=== PATIENT | male | born 1940 | race Caucasian/White ===

== ENCOUNTER 2019-11-15 15:48 | Inpatient (IN) | payer MEDICARE, SELFPAY ==
[2019-11-15 16:28] VITALS: BMI 21.5
[2019-11-15 18:27] VITALS: BP 110/55; PULSE 102; RESP 20; TEMP 37.8; O2SAT 99
--- NOTE | 2019-11-15 18:46 | PC.NURSE ---
LYDIA single lumen PICC, flushes freely, blood return
[2019-11-15] MEDS: PRAVASTATIN SODIUM 20 MG TABLET PO (21:45)
[2019-11-16] VITALS: BP 103/52; PULSE 80; RESP 20; TEMP 37.2; O2SAT 98
[2019-11-16] MEDS: MEROPENEM 2 GM in SODIUM CHLORIDE 0.9% IV 100 ML IVPB ×2 (04:42→17:42)
[2019-11-16 08:00] VITALS: BP 127/61; PULSE 81; RESP 18; TEMP 37; O2SAT 99
[2019-11-16] MEDS: ISOSORBIDE DINITRATE 20 MG TABLET 10 MG PO ×3 (09:39→17:41)
[2019-11-16 09:41] VITALS: PULSE 81
[2019-11-16] MEDS: ASPIRIN 81 MG ENTERIC TABLET PO (09:41)
[2019-11-16] MEDS: carvediloL 6.25 MG TABLET PO ×2 (09:41→21:22)
[2019-11-16] MEDS: hydrALAZINE HCL 25 MG TABLET PO ×3 (09:41→17:41)
--- NOTE | 2019-11-16 12:58 | PM.IMHP ---
H&P: HPI History of Present Illness Chief complaint: Infected Pacemaker site Narrative: Buddy Obregon is a 79 year old male transferred from [facility] to this hospital for physical therapy and continued IV antibiotics. Patient was noted to have bleeding from his ICD site on October 01 and was admitted to [facility] on 11/05 where in he had an explantation of his biventricular ICD. He was originally placed on 07/07/2019. the pocket and both leads grew Pseudomonas and Enterobacter complex bacteria and he is currently being treated with meropenem 2 g IV q.12 hours. Review of Systems Constitutional: Constitutional: Denies body ache(s), Denies chills, Denies fatigue, Denies lethargy and Denies weakness Eyes: Eyes: Denies blurry vision and Denies photophobia ENT: Denies dysphagia, Denies nasal congestion and Denies nasal discharge Cardiovascular: Cardiovascular: Denies chest pain and Denies palpitations Respiratory: Respiratory: Denies cough, Denies dyspnea and Denies dyspnea on exertion Gastrointestinal: Gastrointestinal: Denies abdominal pain, Denies diarrhea, Denies nausea and Denies vomiting Genitourinary: Genitourinary: Denies hematuria, Denies dysuria and Denies urinary frequency Musculoskeletal: Musculoskeletal: Denies arthralgias and Denies joint swelling Integumentary/Breasts: Skin/Breast: Denies pruritus, Denies rash and Denies skin pain Neurologic: Denies Abnormal speech present, Denies abnormal gait, Denies headache(s) and Denies numbness Hematologic/Lymphatic: Hematologic/Lymphatic: Denies easy bleeding and Denies easy bruising Allergic/Immunologic: Allergic/Immunologic: Denies urticaria and Denies wheezing [facility] Past Medical History Medical History (Updated 11/16/19 @ 13:46 by Saroj Escobedo MD) Anemia B12 deficiency Cardiomyopathy CHF (congestive heart failure) Coronary heart disease Glaucoma History of blood transfusion Hyperbilirubinemia Hypertension Infection of biventricular implantable cardioverter-defibrillator (ICD) Implanted 07/07/19 Explanted 11/06/19 Intermittent complete atrioventricular block LBBB (left bundle branch block) Myelodysplastic syndrome NSVT (nonsustained ventricular tachycardia) PVCs (premature ventricular contractions) Surgical History Surgical History History of bone marrow biopsy US guided History of cardiac cath Status post tonsillectomy and adenoidectomy Family History Family History Father Heart attack Diabetes mellitus Social History Social History Smoking packs per day: 1 Smoking cigarettes per day: 20.0 Smoking status: Former smoker Tobacco type: cigarettes, pipe and cigars Second hand tobacco smoke exposure: Yes Smoking end date: 11/15/99 Alcohol intake: current Drinks per week: 1 Substance use: never Living arrangements: with family Gender identity (if verbalized by the patient): Male Sexual Orientation (if Verbalized by the Patient): Straight or Heterosexual Spiritual care concerns: No Meds Home Medications and Allergies Home Medications Medication Instructions Recorded Confirmed Type aspirin [Aspirin Low Dose] 81 mg PO DAILY 11/15/19 11/15/19 History carvedilol 6.25 mg PO BID 11/15/19 11/15/19 History hydralazine 25 mg PO TID 11/15/19 11/15/19 History isosorbide dinitrate 10 mg PO TID 11/15/19 11/15/19 History nitroglycerin 0.4 mg SUBLINGUAL Q5M PRN 11/15/19 11/15/19 History pravastatin 20 mg PO HS 11/15/19 11/15/19 History travoprost [Travatan Z] 1 drp OPHTHALMIC (EYE) HS 11/15/19 11/15/19 History Allergies Allergy/AdvReac Type Severity Reaction Status Date / Time No Known Drug Allergies Allergy Other Verified 11/15/19 19:00 Vital Signs Vital Signs - 24 hr 11/15/19 18:27 11/16/19 00:00 11/16/19 08:00 Temperature
--- NOTE | 2019-11-16 15:26 | PM.IMHP ---
H&P: HPI History of Present Illness Chief complaint: Infected Pacemaker site Narrative: Buddy Obregon is a 79 year old male that has been admitted into [facility] swing bed status post explantation ICD generator and all leads with excisional debridement of pocket tissue completed on 10/24/19. patient has a past medical history of anemia, B12 deficiency, cardiomyopathy, congestive heart failure, coronary heart disease, glaucoma, history of blood transfusion, , hypertension, infections of ICD, intermediate complete atrium ventricle block, LBBB, and SVT, and PVCs. patient had AICD placement on 07/07/2019. patient with ICD pocket infection with a culture growth ofpseudomonas and enterobacter cloacae complex. patient is being treated with meropenem 2 g IV q.12 hours until 12/18/2019. Plan to insert a new device 6 weeks from this date .patient noted that he has declined reinsertion until his more physically stable. While at [facility] was consulted. Patient admitted in swing bed for rehabilitation due to decreased balance decreased mobility in severe limited function endurant and/or mobility. Patient's vital signs are 98.681, 18, 99% on room air, 127/61. Review of Systems Review of Systems: Narrative: CONSTITUTIONAL :No weight loss, fever, chills, weakness or fatigue.: HEENT: Eyes: No diplopia or blurred vision. ENT: No earache, sore throat or runny nose. CARDIOVASCULAR: No pressure, squeezing, strangling, tightness, heaviness or aching about the chest, neck, axilla or epigastrium. RESPIRATORY: No cough, shortness of breath, PND or orthopnea. GASTROINTESTINAL: No nausea, vomiting or diarrhea. GENITOURINARY: No dysuria, frequency or urgency. MUSCULOSKELETAL: No muscle, back pain, joint pain or stiffness. SKIN: No change in skin, hair or nails. NEUROLOGIC: No paresthesias, fasciculations, seizures or weakness. PSYCHIATRIC: No disorder of thought or mood. ENDOCRINE: No heat or cold intolerance, polyuria or polydipsia. HEMATOLOGICAL: No easy bruising or bleeding. [facility] Past Medical History Medical History (Updated 11/19/19 @ 08:06 by NGUYEN Melendez) Anemia B12 deficiency Cardiomyopathy CHF (congestive heart failure) Coronary heart disease Glaucoma History of blood transfusion Hyperbilirubinemia Hypertension Infection of biventricular implantable cardioverter-defibrillator (ICD) Implanted 07/07/19 Explanted 11/06/19 Intermittent complete atrioventricular block LBBB (left bundle branch block) Myelodysplastic syndrome NSVT (nonsustained ventricular tachycardia) Pancytopenia PVCs (premature ventricular contractions) Surgical History Surgical History History of bone marrow biopsy US guided History of cardiac cath Status post tonsillectomy and adenoidectomy Family History Family History Father Heart attack Diabetes mellitus Social History Social History Smoking packs per day: 1 Smoking cigarettes per day: 20.0 Smoking status: Former smoker Tobacco type: cigarettes, pipe and cigars Second hand tobacco smoke exposure: Yes Smoking end date: 11/15/99 Alcohol intake: current Drinks per week: 1 Substance use: never Living arrangements: with family Gender identity (if verbalized by the patient): Male Sexual Orientation (if Verbalized by the Patient): Straight or Heterosexual Spiritual care concerns: No Meds Home Medications and Allergies Home Medications Medication Instructions Recorded Confirmed Type aspirin [Aspirin Low Dose] 81 mg PO DAILY 11/15/19 11/15/19 History carvedilol 6.25 mg PO BID 11/15/19 11/15/19 History hydralazine 25 mg PO TID 11/15/19 11/15/19 History isosorbide dinitrate 10 mg PO TID 11/15/19 11/15/19 History nitroglycerin 0.4 mg SUBLINGUAL Q5M PRN 11/15/19 11/15/19
[2019-11-16 16:00] VITALS: BP 115/74; PULSE 78; RESP 18; TEMP 36.6; O2SAT 97
[2019-11-16] MEDS: DOCUSATE SODIUM 100 MG CAPSULE PO (17:41)
--- NOTE | 2019-11-16 20:11 | PC.NURSE ---
Patient has liquid yellow BM.
[2019-11-16 21:22] VITALS: PULSE 70
[2019-11-16] MEDS: PRAVASTATIN SODIUM 20 MG TABLET PO (21:56)
[2019-11-17] VITALS (15 sets, daily range): BP systolic 91–137; BP diastolic 41–79; PULSE 71–87; RESP 16–20; TEMP 36.7–37.2; O2SAT 98–100
[2019-11-17] MEDS: MEROPENEM 2 GM in SODIUM CHLORIDE 0.9% IV 100 ML IVPB ×2 (05:05→18:35)
[2019-11-17 06:00] LABS: Hematocrit 20.3 % (37.0-46.0); Immature Platelet Fraction Pct 16.4 % (1.0-7.0); Mean Corpuscular HGB Conc 31.5 g/dL (32.0-36.0); Mean Corpuscular Hemoglobin 31.8 pg (27.0-31.0); Platelet Count Result 38 K/mm3 (150-420); Red Blood Count 2.01 M/mm3 (4.70-6.10); Red Cell Distribution Width 17.3 % (11.6-14.4); White Blood Count 3.6 K/mm3 (4.8-10.8)
[2019-11-17 06:13] LABS: Alanine Aminotransferase 13 U/L (16-63); Albumin Level 2.7 g/dL (3.4-5.0); Alkaline Phosphatase 60 U/L (46-116); Anion Gap 7.3 mmol/L (7-16); Aspartate Amino Transferase 10 U/L (15-37); Blood Urea Nitrogen 26 mg/dL (7-18); Calcium 7.9 mg/dL (8.5-10.1); Carbon Dioxide 28 mmol/L (21-32); Chloride 105 mmol/L (98-108); Estimated CRCL calculation 47 ml/min; Estimated Glomerular Filt Rate > 60; Glucose 102 mg/dL (70-99); Osmolality Calculated 286 mOsm/kg (285-295); Potassium 4.3 mmol/L (3.5-5.1); Sodium 136 mmol/L (136-145); Total Protein 5.2 g/dL (6.4-8.2)
[2019-11-17 06:16] LABS: Hemoglobin 6.4 g/dL (12.4-15.3)
--- NOTE | 2019-11-17 08:45 | PC.NURSE ---
Blood drawn per PICC line by nurse
[2019-11-17] MEDS: ASPIRIN 81 MG ENTERIC TABLET PO (09:13)
[2019-11-17] MEDS: DOCUSATE SODIUM 100 MG CAPSULE PO ×2 (09:13→17:20)
[2019-11-17] MEDS: ISOSORBIDE DINITRATE 20 MG TABLET 10 MG PO ×2 (09:13→17:21)
[2019-11-17] MEDS: carvediloL 6.25 MG TABLET PO ×2 (09:13→21:15)
[2019-11-17] MEDS: hydrALAZINE HCL 25 MG TABLET PO ×2 (09:13→17:21)
--- NOTE | 2019-11-17 12:01 | PCOTNOTE ---
OT attempted to see patient this am however patient on hold at this time per nursing as he is receiving blood. MS
[2019-11-17] MEDS: SODIUM CHLORIDE 0.9% IV 250 ML 30 ML IV CONT (13:46)
[2019-11-17 15:19] LABS: Hematocrit 27.6 % (37.0-46.0); Hemoglobin 8.7 g/dL (12.4-15.3)
--- NOTE | 2019-11-17 15:20 | PM.EVENT ---
Event Note Event Note Event Note: patient hemoglobin and hematocrit 6.4/8.7 this a.m. 2 units of PRBC 8 cc infused currently as 8.7 and 27.6. will monitor hemoglobin hematocrit for the next couple of days to make sure patient is not actively bleeding. occult bloods collected results pending. patient denies any shortness of breath, chest pains, chest palpitation. will continue to monitor
[2019-11-17 16:00] LABS: Occult Blood Negative (Negative)
[2019-11-17] MEDS: PRAVASTATIN SODIUM 20 MG TABLET PO (21:15)
[2019-11-18] VITALS: BP 107/54; PULSE 73; RESP 18; TEMP 36.4; O2SAT 98
[2019-11-18] MEDS: MEROPENEM 2 GM in SODIUM CHLORIDE 0.9% IV 100 ML IVPB ×2 (04:51→17:03)
--- NOTE | 2019-11-18 05:43 | PC.NURSE ---
Labs drawn by PICC by this nurse. While drawing labs patient was noted to have edema just below the right elbow. Patient denies pain and does not recall bumping his arm on anything. He states that he has been resting it on the bedside rail.
[2019-11-18 05:50] LABS: Hematocrit 27.6 % (37.0-46.0); Hemoglobin 8.6 g/dL (12.4-15.3); Immature Platelet Fraction Pct 13.4 % (1.0-7.0); Mean Corpuscular HGB Conc 31.2 g/dL (32.0-36.0); Mean Corpuscular Volume 96.2 fL (78.0-102.0); Platelet Count Result 41 K/mm3 (150-420); Red Blood Count 2.87 M/mm3 (4.70-6.10); Red Cell Distribution Width 17.9 % (11.6-14.4); White Blood Count 3.4 K/mm3 (4.8-10.8)
[2019-11-18 06:26] LABS: Band Neutrophils Percent 0 % (0-6); Basophils Absolute Manual 0.03 K/mm3 (0-0.1); Basophils Percent Manual 1 % (0-1); Eosinophils Absolute Manual 0.03 K/mm3 (0.02-0.5); Eosinophils Percent Manual 1 % (1-6); Lymphocytes Absolute Manual 1.19 K/mm3 (1.1-4.5); Lymphocytes Percent Manual 35 % (18-44); Metamyelocytes Percent 2 %; Monocytes Absolute Manual 0.54 K/mm3 (0.1-0.90); Monocytes Percent Manual 16 % (3-9); Neutrophils Absolute Manual 1.53 K/mm3 (1.3-6.7); Neutrophils Percent Manual 45 % (46-73); Nucleated Red Blood Cells 2 %; Platelet Estimate Decreased (Adequate); Total Cells Counted 100
[2019-11-18 07:43] VITALS: BP 132/64; PULSE 70; RESP 16; TEMP 36.6; O2SAT 97
[2019-11-18 08:06] VITALS: PULSE 72
[2019-11-18] MEDS: ISOSORBIDE DINITRATE 20 MG TABLET 10 MG PO ×3 (08:06→17:00)
[2019-11-18] MEDS: ASPIRIN 81 MG ENTERIC TABLET PO (08:06)
[2019-11-18] MEDS: carvediloL 6.25 MG TABLET PO ×2 (08:06→21:11)
[2019-11-18] MEDS: hydrALAZINE HCL 25 MG TABLET PO ×3 (08:06→17:00)
--- NOTE | 2019-11-18 14:34 | PC.NURSE ---
1430 Uneventful [id number] shift. Wound vac patent. No injuries. IV antibiotic therapy continues as scheduled.
--- NOTE | 2019-11-18 15:56 | PC.NURSE ---
Pt sitting up in chair, talking on phone. wound vac intact. No redness or edema noted around dressing. Scant amount of brownish drainage in the vac tube. Pt has no complaints.
[2019-11-18 15:57] VITALS: BP 115/59; PULSE 82; RESP 20; TEMP 37.1; O2SAT 97
[2019-11-18] MEDS: DOCUSATE SODIUM 100 MG CAPSULE PO (17:00)
--- NOTE | 2019-11-18 20:32 | PC.NURSE ---
Patient sitting in chair watching TV. PICC line intact and flurshed without difficulty. Tolerated ABT well. No signs of distress or pain. Call light and belongings within reach. Would vac intact and draining scant amounts of serous drainage.
[2019-11-18] MEDS: PRAVASTATIN SODIUM 20 MG TABLET PO (21:10)
[2019-11-18 21:11] VITALS: PULSE 80
[2019-11-18 23:45] VITALS: BP 104/52; PULSE 78; RESP 20; TEMP 37; O2SAT 98
--- NOTE | 2019-11-18 23:45 | PC.NURSE ---
SN donned gloves and removed old dressing to right chest wound. SN changed gloves and measured wound site. Wound bed with some pink areas and some garcía muscle appearing area. SN applied black foam to wound bed and into tunneled/undermining areas then in wound bed. Area covered with opsite. Hole placed in opsite and second piece of foam applied over hole. Wound vac disc applied over foam and the entire area covered with opsite. Disc tubing applied to canister tubing and machine was turned on. Wound vac set at 125 mm/hg. No leaks observed. Patient tolerated well.
[2019-11-19] MEDS: MEROPENEM 2 GM in SODIUM CHLORIDE 0.9% IV 100 ML IVPB ×2 (05:05→16:47)
[2019-11-19 07:43] VITALS: BP 123/66; PULSE 75; RESP 18; TEMP 36.6; O2SAT 99
[2019-11-19 08:30] VITALS: PULSE 72
[2019-11-19] MEDS: carvediloL 6.25 MG TABLET PO ×2 (08:30→20:55)
[2019-11-19] MEDS: ASPIRIN 81 MG ENTERIC TABLET PO (08:30)
[2019-11-19] MEDS: hydrALAZINE HCL 25 MG TABLET PO ×3 (08:30→16:47)
--- NOTE | 2019-11-19 08:32 | PC.NURSE ---
[id number] RN APPROVED AND AGREE WITH DOCUMENTATION OF LUIZA RIVAS FROM [id number] TO [id number].
[2019-11-19] MEDS: ISOSORBIDE DINITRATE 20 MG TABLET 10 MG PO ×3 (09:49→16:47)
--- NOTE | 2019-11-19 09:52 | PC.NURSE ---
PT SITTING UP IN RECLINER CHAIR, BLE ELEVATED, WATCHING TV. NO DISTRESS, NO COMPLAINTS, ALL NEEDS MET.
--- NOTE | 2019-11-19 10:56 | PC.NURSE ---
PT WORKING WITH PHYSICAL THERAPY AT THIS TIME. PT AMBULATED TO BATHROOM AND BACK TO CHAIR. WOUND VAC FUNCTIONING PROPERLY, GOOD SEAL. NO COMPLAINTS.
--- NOTE | 2019-11-19 15:08 | PC.NURSE ---
Patient sitting in recliner with feet elevated. Patient watching TV. Alert and oriented x3. Friendly and cooperative. Wound vac running with no problems. PICC line to left arm intact, no redness, swelling, drainage observed. Patient denies pain or c/o.
[2019-11-19 16:00] VITALS: BP 107/58; PULSE 77; RESP 16; TEMP 36.9; O2SAT 98
[2019-11-19] MEDS: DOCUSATE SODIUM 100 MG CAPSULE PO (16:47)
--- NOTE | 2019-11-19 17:03 | PC.NURSE ---
Patient ambulated to bathroom and back to chair using walker. Gait steady. PICC line with no redness, swelling, drainage. IV antibiotic started. Line flushed without difficulty. IV infusing as ordered. Wound vac running. No leaks or problems observed.
[2019-11-19 20:55] VITALS: PULSE 80
[2019-11-19] MEDS: PRAVASTATIN SODIUM 20 MG TABLET PO (20:55)
[2019-11-19 23:22] VITALS: BP 118/60; PULSE 82; RESP 16; TEMP 36.6; O2SAT 99
[2019-11-20] MEDS: MEROPENEM 2 GM in SODIUM CHLORIDE 0.9% IV 100 ML IVPB ×2 (04:55→18:00)
--- NOTE | 2019-11-20 06:00 | PC.NURSE ---
LAURA continues. Lab here ..Pt to have lab draw later in am.
[2019-11-20 07:40] VITALS: BP 111/61; PULSE 100; RESP 18; TEMP 37.6; O2SAT 98
[2019-11-20 08:12] LABS: Hematocrit 30.2 % (37.0-46.0); Hemoglobin 9.7 g/dL (12.4-15.3); Mean Corpuscular HGB Conc 32.1 g/dL (32.0-36.0); Mean Corpuscular Hemoglobin 30.6 pg (27.0-31.0); Mean Corpuscular Volume 95.3 fL (78.0-102.0); Platelet Count Result 43 K/mm3 (150-420); Red Blood Count 3.17 M/mm3 (4.70-6.10); Red Cell Distribution Width 17.4 % (11.6-14.4); White Blood Count 5.1 K/mm3 (4.8-10.8)
[2019-11-20 08:51] LABS: Blood Urea Nitrogen 26 mg/dL (7-18); Carbon Dioxide 27 mmol/L (21-32); Estimated CRCL calculation 42 ml/min; Estimated Glomerular Filt Rate > 60; Glucose 105 mg/dL (70-99)
[2019-11-20 08:52] LABS: Alanine Aminotransferase 14 U/L (16-63); Albumin Level 3.1 g/dL (3.4-5.0); Alkaline Phosphatase 85 U/L (46-116); Aspartate Amino Transferase 14 U/L (15-37); Bilirubin,Total 1.9 mg/dL (0.00-1.00); Calcium 8.3 mg/dL (8.5-10.1); Total Protein 6.2 g/dL (6.4-8.2)
[2019-11-20 09:09] VITALS: PULSE 100
[2019-11-20] MEDS: ISOSORBIDE DINITRATE 20 MG TABLET 10 MG PO ×3 (09:09→18:02)
[2019-11-20] MEDS: carvediloL 6.25 MG TABLET PO ×2 (09:09→21:03)
[2019-11-20] MEDS: DOCUSATE SODIUM 100 MG CAPSULE PO (09:10)
[2019-11-20] MEDS: ASPIRIN 81 MG ENTERIC TABLET PO (09:10)
[2019-11-20] MEDS: hydrALAZINE HCL 25 MG TABLET PO ×3 (09:10→18:02)
[2019-11-20 09:15] LABS: Anion Gap 8.6 mmol/L (7-16); Chloride 102 mmol/L (98-107); Osmolality Calculated 280 mOsm/kg (285-295); Potassium 4.6 mmol/L (3.4-5.0); Sodium 133 mmol/L (137-145)
[2019-11-20 16:00] VITALS: BP 125/61; PULSE 84; RESP 18; TEMP 36.9; O2SAT 98
[2019-11-20] MEDS: PRAVASTATIN SODIUM 20 MG TABLET PO (21:03)
[2019-11-21] VITALS: BP 99/40; PULSE 70; RESP 16; TEMP 36.6; O2SAT 98
--- NOTE | 2019-11-21 00:11 | PC.NURSE ---
SN donned gloves and removed old dressing. Area cleansed, skin prep applied to outside area surrounding the wound. Gloves changed, Black foam applied to wound bed, covered with opsite. Hole cut in opsite and second piece of foam applied over hole. Wound vac disc applied over area, then entire area covered with opsite. Disc tubing applied to canister tubing and vac turned on at 75 mm/hg. No leaks detected. Patient tolerated well.
--- NOTE | 2019-11-21 03:42 | PC.NURSE ---
Resting quietly, resp non labored, call light in reach of patient
--- NOTE | 2019-11-21 06:18 | PC.NURSE ---
Assisted up to chair and to void, tolerated well
[2019-11-21 07:42] VITALS: BP 107/59; PULSE 72; RESP 18; TEMP 36.4; O2SAT 97
--- NOTE | 2019-11-21 07:48 | PC.NURSE ---
AM assessment completed by Joe Moore RN
[2019-11-21 08:52] VITALS: PULSE 72
[2019-11-21] MEDS: carvediloL 6.25 MG TABLET PO ×2 (08:52→20:20)
[2019-11-21] MEDS: ISOSORBIDE DINITRATE 20 MG TABLET 10 MG PO ×3 (08:52→16:45)
[2019-11-21] MEDS: hydrALAZINE HCL 25 MG TABLET PO ×3 (08:52→16:44)
[2019-11-21] MEDS: ASPIRIN 81 MG ENTERIC TABLET PO (08:52)
[2019-11-21] MEDS: DOCUSATE SODIUM 100 MG CAPSULE PO ×2 (08:52→16:44)
--- NOTE | 2019-11-21 09:01 | PC.NURSE ---
Up to bathroom to wash up for the day, denies need of any assistance to wash up
--- NOTE | 2019-11-21 09:40 | PC.NURSE ---
patient returned to chair and dressed self in clean clothes, hooked back up to wound vac at this time, denies needs, call light in reach of patient
[2019-11-21] MEDS: MEROPENEM 2 GM in SODIUM CHLORIDE 0.9% IV 100 ML IVPB (11:40)
--- NOTE | 2019-11-21 13:42 | PC.NURSE ---
in chair, legs elevated, personal items in reach of patient
[2019-11-21 15:53] VITALS: BP 97/47; PULSE 86; RESP 18; TEMP 36.6; O2SAT 99
[2019-11-21 20:17] VITALS: BP 112/64; PULSE 87; RESP 18; TEMP 36.3; O2SAT 99
[2019-11-21] MEDS: PRAVASTATIN SODIUM 20 MG TABLET PO (20:20)
[2019-11-22 00:25] VITALS: BP 114/66; PULSE 82; RESP 18; TEMP 36.6; O2SAT 98
[2019-11-22] MEDS: MEROPENEM 2 GM in SODIUM CHLORIDE 0.9% IV 100 ML IVPB ×3 (00:28→23:59)
[2019-11-22 07:30] VITALS: BP 118/67; PULSE 83; RESP 18; TEMP 36.8; O2SAT 98
[2019-11-22 08:47] VITALS: PULSE 83
[2019-11-22] MEDS: ISOSORBIDE DINITRATE 20 MG TABLET 10 MG PO ×3 (08:47→17:55)
[2019-11-22] MEDS: hydrALAZINE HCL 25 MG TABLET PO ×3 (08:47→17:54)
[2019-11-22] MEDS: ASPIRIN 81 MG ENTERIC TABLET PO (08:47)
[2019-11-22] MEDS: carvediloL 6.25 MG TABLET PO ×2 (08:47→20:18)
--- NOTE | 2019-11-22 13:03 | P.PN_ITS ---
Progress Note: A&P Assessment and Plan (1) Infection of biventricular implantable cardioverter-defibrillator (ICD): Code(s): T82.7XXA - Infection and inflammatory reaction due to other cardiac and vascular devices, implants and grafts, initial encounter <NGUYEN Melendez - Last Filed: 11/22/19 13:09> Status: Acute <NGUYEN Melendez - Last Filed: 11/22/19 13:09> Assessment and Plan: * wound to the right upper chest 2.2x4.8x0.9 wound vac in plave drsg change 3x per weekF[facility]24[facility]19 at 9:[address] Lucia * continue meropenem 2 g iv q12hr ( delvis dose) for pseudomonas and enterobacter cloacae complex for six week from debridement approximately December 18, 2019 * will wait a full 6 week before inserting a new device. Per notes placement of device is urgent and it will be reasonable to insert a new device prior to completion antibiotic treatment. * ID and senior technologist agrees to wait to completion of antibiotic treatment to Prieb implant ICD * collect weekly CBCs and CMPs if fax results [phone] * follow-up with [facility] ID clinic in 5-6 weeks via web mail. call [phone] to make appointment * October 2018 dx with LVEF 35% recent echo inproved ef of 55-50% no vegetation seen * f/u woth cardiology in 1-2 months * wound VAC setting to continuous pump settings 75 mm hg, dressing change on Wednesdays and Fridays * removed PICC line after last antibiotic treatment <NGUYEN Melendez - Last Filed: 11/22/19 13:09> (2) Glaucoma: Code(s): H40.9 - Unspecified glaucoma <NGUYEN Melendez - Last Filed: 11/22/19 13:09> Status: Acute <NGUYEN Melendez - Last Filed: 11/22/19 13:09> Assessment and Plan: * continue eyedrops travoprost <NGUYEN Melendez - Last Filed: 11/22/19 13:09> (3) Hypertension: Code(s): I10 - Essential (primary) hypertension <Nan LamarJerald Norris NITROGEN OPERATOR-C - Last Filed: 11/22/19 13:09> Status: Acute <Nan Pisano NITROGEN OPERATOR-C - Last Filed: 11/22/19 13:09> Assessment and Plan: * blood pressure stable * continue Coreg 6.25 mg Q 12 hours, hydralazine 25 mg p.o. t.i.d., isosorbide 10 mg p.o. t.i.d. * vital signs is ordered * will adjust medication as needed <Nan Tamir Pisano NITROGEN OPERATOR-C - Last Filed: 11/22/19 13:09> (4) Myelodysplastic syndrome: Code(s): D46.9 - Myelodysplastic syndrome, unspecified <Nan LamarJerald Norris NITROGEN OPERATOR-C - Last Filed: 11/22/19 13:09> Status: Acute <Nan ELIS Campa-C - Last Filed: 11/22/19 13:09> Assessment and Plan: * follow Dr. Barrientos <GarciaJENNIFER DavidC - Last Filed: 11/22/19 13:09> (5) Anemia: Code(s): D64.9 - Anemia, unspecified <Nan LamarJerald Pisano NITROGEN OPERATOR-C - Last Filed: 11/22/19 13:09> Status: Acute <Nan LamarJerald Norris NITROGEN OPERATOR-C - Last Filed: 11/22/19 13:09> Assessment and Plan: * give regular transfusion for hemoglobin less than 7, last piña sfusion approximately October 23, 2019 * platelet counts at 38,000 baseline is between 30 and 50,000 * he is status post 1 dose aranesp as per Dr. Barrientos on 11/10/2019 * patient receives aranesp, Nplat and G-CSG prn from Dr. Barrientos * transfuse if hemoglobin is less than 7 or platelets below 20 K <GarciaELIS David-C - Last Filed: 11/22/19 13:09> (6) Cardiomyopathy: Code(s): I42.9 - Cardiomyopathy, unspecified <ELIS Melendez-C - Last Filed: 11/22/19 13:09> Status: Acute <Nan Pisano, NITROGEN OPERATOR-C - Last Filed: 11/22/19 13:09> Assessment and Plan:
--- NOTE | 2019-11-22 13:03 | WPDPN ---
Progress Note: A&P Assessment and Plan (1) Infection of biventricular implantable cardioverter-defibrillator (ICD): Code(s): T82.7XXA - Infection and inflammatory reaction due to other cardiac and vascular devices, implants and grafts, initial encounter <NGUYEN Melendez - Last Filed: 11/22/19 13:09> Status: Acute <NGUEYN Melendez - Last Filed: 11/22/19 13:09> Assessment and Plan: wound to the right upper chest 2.2x4.8x0.9 wound vac in plave drsg [facility] at 9:[address] Lucia continue meropenem 2 g iv q12hr ( delvis dose) for pseudomonas and enterobacter cloacae complex for six week from debridement approximately December 18, 2019 will wait a full 6 week before inserting a new device. Per notes placement of device is urgent and it will be reasonable to insert a new device prior to completion antibiotic treatment. ID and film waxer agrees to wait to completion of antibiotic treatment to Prieb implant ICD collect weekly CBCs and CMPs if fax results [phone] follow-up with [facility] ID clinic in 5-6 weeks via web mail. call [phone] to make appointment October 2018 dx with LVEF 35% recent echo inproved ef of 55-50% no vegetation seen f/u woth cardiology in 1-2 months wound VAC setting to continuous pump settings 75 mm hg, dressing change on Wednesdays and Fridays removed PICC line after last antibiotic treatment <NGUYEN Melendez - Last Filed: 11/22/19 13:09> (2) Glaucoma: Code(s): H40.9 - Unspecified glaucoma <NGUYEN Melendez - Last Filed: 11/22/19 13:09> Status: Acute <NGUYEN Melendez - Last Filed: 11/22/19 13:09> Assessment and Plan: continue eyedrops travoprost <NGUYEN Melendez - Last Filed: 11/22/19 13:09> (3) Hypertension: Code(s): I10 - Essential (primary) hypertension <ELIS Melendez-C - Last Filed: 11/22/19 13:09> Status: Acute <Nan LamarJerald NorrisELIS-C - Last Filed: 11/22/19 13:09> Assessment and Plan: blood pressure stable continue Coreg 6.25 mg Q 12 hours, hydralazine 25 mg p.o. t.i.d., isosorbide 10 mg p.o. t.i.d. vital signs is ordered will adjust medication as needed <GarciaELIS David-C - Last Filed: 11/22/19 13:09> (4) Myelodysplastic syndrome: Code(s): D46.9 - Myelodysplastic syndrome, unspecified <GarciaJENNIFER DavidC - Last Filed: 11/22/19 13:09> Status: Acute <ELIS Melendez-C - Last Filed: 11/22/19 13:09> Assessment and Plan: follow Dr. Barrientos <JENNIFER MelendezC - Last Filed: 11/22/19 13:09> (5) Anemia: Code(s): D64.9 - Anemia, unspecified <ELIS Melendez-C - Last Filed: 11/22/19 13:09> Status: Acute <GarciaELIS David-C - Last Filed: 11/22/19 13:09> Assessment and Plan: give regular transfusion for hemoglobin less than 7, last transfusion approximately October 23, 2019 platelet counts at 38,000 baseline is between 30 and 50,000 he is status post 1 dose aranesp as per Dr. Barrientos on 11/10/2019 patient receives aranesp, Nplat and G-CSG prn from Dr. Barrientos transfuse if hemoglobin is less than 7 or platelets below 20 K <JENNIFER MelendezC - Last Filed: 11/22/19 13:09> (6) Cardiomyopathy: Code(s): I42.9 - Cardiomyopathy, unspecified <ELIS Melendez-C - Last Filed: 11/22/19 13:09> Status: Acute <ELIS Melendez-C - Last Filed: 11/22/19 13:09> Assessment and Plan: Biv ICD placement 07/06 ICD pocket infection s/p explantation of ICD generator and all lead w/ excisional debridement of the pocket f/u with cardiologists in 1-2 months Per notes placement of device is urgent and it will be reasonable to insert a new device prior to completion antibiotic treatment. hx of NSVT, PVCs, LBBB continue aspirin nitrate
--- NOTE | 2019-11-22 14:00 | PC.NURSE ---
Patient leaving building with Ambreen Hart, going to MD appointment in [place] per private vehicle Temporary absence release signed in chart.
[2019-11-22 17:40] VITALS: BP 133/74; PULSE 97; RESP 18; TEMP 36.9; O2SAT 99
--- NOTE | 2019-11-22 17:40 | PC.NURSE ---
Patient returned to floor from MD visit
[2019-11-22 20:15] VITALS: BP 113/56; PULSE 96; RESP 18; TEMP 36.4; O2SAT 98
[2019-11-22] MEDS: PRAVASTATIN SODIUM 20 MG TABLET PO (20:18)
[2019-11-23] VITALS: BP 105/57; PULSE 88; RESP 18; TEMP 36.8; O2SAT 99
[2019-11-23 07:07] VITALS: BP 110/56; PULSE 86; RESP 18; TEMP 36.6; O2SAT 98
--- NOTE | 2019-11-23 07:10 | PC.NURSE ---
In chair, denies needs, personal items in reach, call light in reach, wound vac in place
--- NOTE | 2019-11-23 07:26 | PC.NURSE ---
SBA up to void, tolerated well, denies needs, used walker, wound vac on hold while up, re applied when back to chair
--- NOTE | 2019-11-23 07:54 | P.PNCROSS_ITS ---
Event Note Event Note Event Note: Patient appt with onc 11/22/2019 * recommendation aranesp 400 mg today and weekly * hplate 1mg/kg today and weekly * granix 480 mg sq today then weekly and prn * RTC in 4 weeks * cbc one day before aranesp/ procrit * transfuse if hgb <7.0 platelet <10
--- NOTE | 2019-11-23 07:54 | PM.EVENT ---
Event Note Event Note Event Note: Patient appt with onc 11/22/2019 recommendation aranesp 400 mg today and weekly hplate 1mg/kg today and weekly granix 480 mg sq today then weekly and prn RTC in 4 weeks cbc one day before aranesp/ procrit transfuse if hgb <7.0 platelet <10
[2019-11-23 08:34] VITALS: PULSE 86
[2019-11-23] MEDS: ISOSORBIDE DINITRATE 20 MG TABLET 10 MG PO ×3 (08:34→16:46)
[2019-11-23] MEDS: carvediloL 6.25 MG TABLET PO ×2 (08:34→20:52)
[2019-11-23] MEDS: ASPIRIN 81 MG ENTERIC TABLET PO (08:34)
[2019-11-23] MEDS: hydrALAZINE HCL 25 MG TABLET PO ×3 (08:35→16:46)
[2019-11-23] MEDS: MEROPENEM 2 GM in SODIUM CHLORIDE 0.9% IV 100 ML IVPB ×2 (11:01→23:58)
[2019-11-23 15:44] VITALS: BP 95/49; PULSE 96; RESP 16; TEMP 37.4; O2SAT 98
[2019-11-23 15:45] LABS: Hematocrit 23.3 % (37.0-46.0); Hemoglobin 7.3 g/dL (12.4-15.3); Mean Corpuscular HGB Conc 31.3 g/dL (32.0-36.0); Mean Corpuscular Hemoglobin 30.7 pg (27.0-31.0); Mean Corpuscular Volume 97.9 fL (78.0-102.0); Red Blood Count 2.38 M/mm3 (4.70-6.10); Red Cell Distribution Width 17.3 % (11.6-14.4); White Blood Count 4.8 K/mm3 (4.8-10.8)
[2019-11-23 15:50] LABS: Platelet Count Result 23 K/mm3 (150-420)
[2019-11-23] MEDS: DOCUSATE SODIUM 100 MG CAPSULE PO (16:46)
--- NOTE | 2019-11-23 17:51 | PC.NURSE ---
wound vac container changed due to broken clasp, vac operational as normal
[2019-11-23] MEDS: PRAVASTATIN SODIUM 20 MG TABLET PO (20:51)
[2019-11-24] VITALS: BP 100/49; PULSE 84; RESP 18; TEMP 37; O2SAT 98
--- NOTE | 2019-11-24 06:15 | PC.NURSE ---
Wound vac removed. Area cleansed with NS and wet to dry dressing applied. Patient tolerated well. Call light in reach.
--- NOTE | 2019-11-24 06:39 | PC.NURSE ---
Pt assisted with dressing.
[2019-11-24 07:18] VITALS: PULSE 91
[2019-11-24] MEDS: carvediloL 6.25 MG TABLET PO ×2 (07:18→20:35)
[2019-11-24] MEDS: ASPIRIN 81 MG ENTERIC TABLET PO (07:18)
[2019-11-24] MEDS: hydrALAZINE HCL 25 MG TABLET PO ×2 (07:18→13:53)
[2019-11-24] MEDS: ISOSORBIDE DINITRATE 20 MG TABLET 10 MG PO ×2 (07:19→13:54)
[2019-11-24 07:26] VITALS: BP 119/65; PULSE 84; RESP 16; TEMP 36.7; O2SAT 99
--- NOTE | 2019-11-24 08:02 | PC.NURSE ---
pt left unit to go to the doctor's appointment. accompanies by family member
[2019-11-24] MEDS: MEROPENEM 2 GM in SODIUM CHLORIDE 0.9% IV 100 ML IVPB (13:52)
--- NOTE | 2019-11-24 14:08 | P.PNIM_ITS ---
Progress Note: A&P Assessment and Plan (1) Infection of biventricular implantable cardioverter-defibrillator (ICD): Code(s): T82.7XXA - Infection and inflammatory reaction due to other cardiac and vascular devices, implants and grafts, initial encounter Status: Acute Assessment and Plan: * wound to the right upper chest 2.2x4.8x0.9 wound vac in [place] drsg change 3x per weekF/u with [facility] 11/24/19 at 9:[address] Lucia * continue meropenem 2 g iv q12hr ( delvis dose) for pseudomonas and enterobacter cloacae complex for six week from debridement approximately December 18, 2019 * will wait a full 6 week before inserting a new device. Per notes placement of device is urgent and it will be reasonable to insert a new device prior to completion antibiotic treatment. * ID and manufacturing lead agrees to wait to completion of antibiotic treatment to Prieb implant ICD * collect weekly CBCs and CMPs if fax results [phone] * follow-up with [facility] in 5-6 weeks via web mail. call [phone] to make appointment * October 2018 dx with LVEF 35% recent echo inproved ef of 55-50% no vegetation seen * f/u woth cardiology in 1-2 months * wound VAC setting to continuous pump settings 75 mm hg, dressing change on Wednesdays and Fridays * removed PICC line after last antibiotic treatment * wound to the right upper chest 2.2x4.8x0.9 wound vac in [place] drsg change 3x per weekF/u with [facility] 11/24/19 at 9:[address] Lucia * continue meropenem 2 g iv q12hr ( delvis dose) for pseudomonas and enterobacter cloacae complex for six week from debridement approximately December 18, 2019 * will wait a full 6 week before inserting a new device. Per notes placement of device is urgent and it will be reasonable to insert a new device prior to completion antibiotic treatment. * ID and manufacturing lead agrees to wait to completion of antibiotic treatment to Prieb implant ICD * collect weekly CBCs and CMPs if fax results [phone] * follow-up with [facility] in 5-6 weeks via web mail. call [phone] to make appointment * October 2018 dx with LVEF 35% recent echo inproved ef of 55-50% no vegetation seen * f/u woth cardiology in 1-2 months * wound VAC setting to continuous pump settings 75 mm hg, dressing change on Wednesdays and Fridays * removed PICC line after last antibiotic treatment (2) Glaucoma: Code(s): H40.9 - Unspecified glaucoma Status: Acute Assessment and Plan: * continue eyedrops travoprost * continue eyedrops travoprost (3) Hypertension: Code(s): I10 - Essential (primary) hypertension Status: Acute Assessment and Plan: * blood pressure stable * continue Coreg 6.25 mg Q 12 hours, hydralazine 25 mg p.o. t.i.d., isosorbide 10 mg p.o. t.i.d. * vital signs is ordered * will adjust medication as needed * blood pressure stable * continue Coreg 6.25 mg Q 12 hours, hydralazine 25 mg p.o. t.i.d., isosorbide 10 mg p.o. t.i.d. * vital signs is ordered * will adjust medication as needed (4) Myelodysplastic syndrome: Code(s): D46.9 - Myelodysplastic syndrome, unspecified Status: Acute Assessment and Plan: * follow Dr. Barrientos * follow Dr. Barrientos (5) Anemia: Code(s): D64.9 - Anemia, unspecified Status: Acute Assessment and Plan: * give regular transfusion for hemoglobin less than 7, last transfusion approximately October 23, 2019 * platelet counts at 38,000 baseline is between 30 and 50,000 * he is status post 1 dose aranesp as per Dr. Barrientos on 11/10/2019 * patient receives
--- NOTE | 2019-11-24 14:08 | PM.IMPN ---
Progress Note: A&P Assessment and Plan (1) Infection of biventricular implantable cardioverter-defibrillator (ICD): Code(s): T82.7XXA - Infection and inflammatory reaction due to other cardiac and vascular devices, implants and grafts, initial encounter Status: Acute Assessment and Plan: wound to the right upper chest 2.2x4.8x0.9 wound vac in [facility] drsg change 3x per weekF/u with [facility] 11/24/19 at 9:[address] Lucia continue meropenem 2 g iv q12hr ( delvis dose) for pseudomonas and enterobacter cloacae complex for six week from debridement approximately December 18, 2019 will wait a full 6 week before inserting a new device. Per notes placement of device is urgent and it will be reasonable to insert a new device prior to completion antibiotic treatment. ID and early childhood teacher agrees to wait to completion of antibiotic treatment to [facility] implant ICD collect weekly CBCs and CMPs if fax results [phone] follow-up with [facility] in 5-6 weeks via web mail. call [phone] to make appointment October 2018 dx with LVEF 35% recent echo inproved ef of 55-50% no vegetation seen f/u woth cardiology in 1-2 months wound VAC setting to continuous pump settings 75 mm hg, dressing change on Wednesdays and Fridays removed PICC line after last antibiotic treatment wound to the right upper chest 2.2x4.8x0.9 wound vac in [facility] drsg change 3x per weekF/u with [facility] 11/24/19 at 9:[address] Lucia continue meropenem 2 g iv q12hr ( delvis dose) for pseudomonas and enterobacter cloacae complex for six week from debridement approximately December 18, 2019 will wait a full 6 week before inserting a new device. Per notes placement of device is urgent and it will be reasonable to insert a new device prior to completion antibiotic treatment. ID and early childhood teacher agrees to wait to completion of antibiotic treatment to Prieb implant ICD collect weekly CBCs and CMPs if fax results [phone] follow-up with [facility] in 5-6 weeks via web mail. call [phone] to make appointment October 2018 dx with LVEF 35% recent echo inproved ef of 55-50% no vegetation seen f/u woth cardiology in 1-2 months wound VAC setting to continuous pump settings 75 mm hg, dressing change on Wednesdays and Fridays removed PICC line after last antibiotic treatment (2) Glaucoma: Code(s): H40.9 - Unspecified glaucoma Status: Acute Assessment and Plan: continue eyedrops travoprost continue eyedrops travoprost (3) Hypertension: Code(s): I10 - Essential (primary) hypertension Status: Acute Assessment and Plan: blood pressure stable continue Coreg 6.25 mg Q 12 hours, hydralazine 25 mg p.o. t.i.d., isosorbide 10 mg p.o. t.i.d. vital signs is ordered will adjust medication as needed blood pressure stable continue Coreg 6.25 mg Q 12 hours, hydralazine 25 mg p.o. t.i.d., isosorbide 10 mg p.o. t.i.d. vital signs is ordered will adjust medication as needed (4) Myelodysplastic syndrome: Code(s): D46.9 - Myelodysplastic syndrome, unspecified Status: Acute Assessment and Plan: follow Dr. Barrientos follow Dr. Barrientos (5) Anemia: Code(s): D64.9 - Anemia, unspecified Status: Acute Assessment and Plan: give regular transfusion for hemoglobin less than 7, last transfusion approximately October 23, 2019 platelet counts at 38,000 baseline is between 30 and 50,000 he is status post 1 dose aranesp as per Dr. Barrientos on 11/10/2019 patient receives aranesp, Nplat and G-CSG prn from Dr. Barrientos transfuse if hemoglobin is less than 7 or platelets below 20 K give regular transfusion for hemoglobin less than 7, last transfusion approximately October 23, 2019 platelet counts at 38,000 baseline is between 30 and 50,000 he is status post 1 dose aranesp as per Dr. Barrientos on 11/10/2019 patient receives aranesp, Nplat and G-CSG prn from
[2019-11-24] MEDS: SODIUM CHLORIDE 0.9% IV 100 ML 33.33 ML (14:12)
--- NOTE | 2019-11-24 14:13 | PC.NURSE ---
PT RETURNED TO UNIT WITH DAUGHTER. PO MEDS GIVEN, IVABT STARTED. ATTEMPTED TO GIVEN WEEKLY INJECTIONS BUT PT REPORTS THAT HE GOT THEM ALL AT THE DOCTOR'S OFFICE ON WEDNESDAY. DAUGHTER CONFIRMED THAT ALL INJECTIONS GIVEN. CHARGE NURSE AWAY.
[2019-11-24 16:00] VITALS: BP 120/76; PULSE 76; RESP 16; TEMP 36.4; O2SAT 99
--- NOTE | 2019-11-24 16:27 | PC.NURSE ---
5pm meds held due to pt being out of building for md appointment and recieving meds upon return to unit (doses would be too close together.). pt refuses colace.
--- NOTE | 2019-11-24 17:39 | PC.NURSE ---
wound vac dressing applied. pressure increased to 125 per orders.
[2019-11-24 20:35] VITALS: PULSE 92
[2019-11-24] MEDS: PRAVASTATIN SODIUM 20 MG TABLET PO (20:36)
--- NOTE | 2019-11-24 23:12 | PC.NURSE ---
pt sitting in recliner watching tv, denies any needs at this time
[2019-11-25] MEDS: MEROPENEM 2 GM in SODIUM CHLORIDE 0.9% IV 100 ML IVPB ×3 (00:49→23:27)
[2019-11-25 00:50] VITALS: BP 115/56; PULSE 82; RESP 16; TEMP 37.2; O2SAT 99
--- NOTE | 2019-11-25 02:44 | PC.NURSE ---
pt sleeping, no evidence of distress noted, iv antibiotic infusing per order
--- NOTE | 2019-11-25 06:22 | PC.NURSE ---
pt sleeping, respirations even and regular, no evidence of distress noted at this time
--- NOTE | 2019-11-25 07:21 | P.PNIM_ITS ---
Progress Note: A&P Assessment and Plan (1) Infection of biventricular implantable cardioverter-defibrillator (ICD): Code(s): T82.7XXA - Infection and inflammatory reaction due to other cardiac and vascular devices, implants and grafts, initial encounter Status: Acute Assessment and Plan: * wound to the right upper chest 2.2x4.8x0.9 wound vac in [place] drsg change 3x per weekF/u with [facility] 11/24/19 at 9:[address] Lucia * continue meropenem 2 g iv q12hr ( delvis dose) for pseudomonas and enterobacter cloacae complex for six week from debridement approximately December 18, 2019 * will wait a full 6 week before inserting a new device. Per notes placement of device is urgent and it will be reasonable to insert a new device prior to completion antibiotic treatment. * ID and clipper and turner agrees to wait to completion of antibiotic treatment to plan implant ICD * collect weekly CBCs and CMPs if fax results [phone] * follow-up with [facility] in 5-6 weeks via web mail. call [phone] to make appointment * October 2018 dx with LVEF 35% ; then the May 2019 Echo showed EF improved to 50% with no vegetation seen * f/u woth cardiology in 1-2 months * wound VAC setting to continuous pump settings 75 mm hg, dressing change on Wednesdays and Fridays * removed PICC line after last antibiotic treatment * wound to the right upper chest 2.2x4.8x0.9 wound vac in [place] drsg change 3x per weekF/u with [facility] 11/24/19 at 9:[address] Lucia * continue meropenem 2 g iv q12hr ( delvis dose) for pseudomonas and enterobacter cloacae complex for six week from debridement approximately December 18, 2019 * will wait a full 6 week before inserting a new device. Per notes placement of device is urgent and it will be reasonable to insert a new device prior to completion antibiotic treatment. * ID and clipper and turner agrees to wait to completion of antibiotic treatment to Prieb implant ICD * collect weekly CBCs and CMPs if fax results [phone] * follow-up with [facility] clinic in 5-6 weeks via web mail. call [phone] to make appointment * October 2018 dx with LVEF 35% recent echo inproved ef of 55-50% no vegetation seen * Cardiology F/U appts. noted above. * wound VAC setting to continuous pump settings 125 mm hg, dressing change on Wednesdays and Fridays * remove PICC line after last antibiotic treatment (2) Glaucoma: Code(s): H40.9 - Unspecified glaucoma Status: Acute Assessment and Plan: * continue eyedrops travoprost * continue eyedrops travoprost * no complaints at this time, ambulating and eating well with no noted visual concerns or impairments. (3) Hypertension: Code(s): I10 - Essential (primary) hypertension Status: Acute Assessment and Plan: * blood pressure stable * continue Coreg 6.25 mg Q 12 hours, hydralazine 25 mg p.o. t.i.d., isosorbide 10 mg p.o. t.i.d. * vital signs as ordered * will adjust medication as needed (4) Myelodysplastic syndrome: Code(s): D46.9 - Myelodysplastic syndrome, unspecified Status: Acute Assessment and Plan: * Buddy has MDS, myodysplastic syndrome. * follow up with Dr. Barrientos * baseline platelet level is 30-50. * patient had already received his Aranesp 400mg, Nplate, and Granix while he was at his Lunch [employer] visit on WednesdayNov.21. [facility] is not to give those 3 medications. The machine tool operator will be giving those medications at his weekly office visits with them. The machine tool operator also redrew and rechecked his CBC lab-work, and were already aware of his low annalisa
--- NOTE | 2019-11-25 07:21 | PM.IMPN ---
Progress Note: A&P Assessment and Plan (1) Infection of biventricular implantable cardioverter-defibrillator (ICD): Code(s): T82.7XXA - Infection and inflammatory reaction due to other cardiac and vascular devices, implants and grafts, initial encounter Status: Acute Assessment and Plan: wound to the right upper chest 2.2x4.8x0.9 wound vac in [facility] drsg change 3x per weekF/u with [facility] 11/24/19 at 9:[address] Lucia continue meropenem 2 g iv q12hr ( delvis dose) for pseudomonas and enterobacter cloacae complex for six week from debridement approximately December 18, 2019 will wait a full 6 week before inserting a new device. Per notes placement of device is urgent and it will be reasonable to insert a new device prior to completion antibiotic treatment. ID and manufacturing inspector agrees to wait to completion of antibiotic treatment to plan implant ICD collect weekly CBCs and CMPs if fax results [phone] follow-up with [facility] clinic in 5-6 weeks via web mail. call [phone] to make appointment October 2018 dx with LVEF 35% ; then the May 2019 Echo showed EF improved to 50% with no vegetation seen f/u woth cardiology in 1-2 months wound VAC setting to continuous pump settings 75 mm hg, dressing change on Wednesdays and Fridays removed PICC line after last antibiotic treatment wound to the right upper chest 2.2x4.8x0.9 wound vac in [facility] drsg change 3x per weekF/u with [facility] 11/24/19 at 9:[address] Lucia continue meropenem 2 g iv q12hr ( delvis dose) for pseudomonas and enterobacter cloacae complex for six week from debridement approximately December 18, 2019 will wait a full 6 week before inserting a new device. Per notes placement of device is urgent and it will be reasonable to insert a new device prior to completion antibiotic treatment. ID and manufacturing inspector agrees to wait to completion of antibiotic treatment to Prieb implant ICD collect weekly CBCs and CMPs if fax results [phone] follow-up with [facility] in 5-6 weeks via web mail. call [phone] to make appointment October 2018 dx with LVEF 35% recent echo inproved ef of 55-50% no vegetation seen Cardiology F/U appts. noted above. wound VAC setting to continuous pump settings 125 mm hg, dressing change on Wednesdays and Fridays remove PICC line after last antibiotic treatment (2) Glaucoma: Code(s): H40.9 - Unspecified glaucoma Status: Acute Assessment and Plan: continue eyedrops travoprost continue eyedrops travoprost no complaints at this time, ambulating and eating well with no noted visual concerns or impairments. (3) Hypertension: Code(s): I10 - Essential (primary) hypertension Status: Acute Assessment and Plan: blood pressure stable continue Coreg 6.25 mg Q 12 hours, hydralazine 25 mg p.o. t.i.d., isosorbide 10 mg p.o. t.i.d. vital signs as ordered will adjust medication as needed (4) Myelodysplastic syndrome: Code(s): D46.9 - Myelodysplastic syndrome, unspecified Status: Acute Assessment and Plan: Buddy has MDS, myodysplastic syndrome. follow up with Dr. Barrientos baseline platelet level is 30-50. patient had already received his Aranesp 400mg, Nplate, and Granix while he was at his [employer] visit on WednesdayNov.21. [facility] is not to give those 3 medications. The flat folder will be giving those medications at his weekly office visits with them. The flat folder also redrew and rechecked his CBC lab-work, and were already aware of his low platelets in the 20s at that time. Director Of [employer] Work/Oncologist Dr. Barrientos of [facility] do their own weekly CBCs on Wednesdays so that they will know what medications to give at his office visit. office visit with them every 4 weeks. Stool occult negative. (5) Anemia: Code(s): D64.9 - Anemia, unspecified Status: Acute Assessment and Plan:
[2019-11-25 07:46] VITALS: BP 125/60; PULSE 88; RESP 18; TEMP 37.2; O2SAT 99
[2019-11-25 09:12] VITALS: PULSE 88
[2019-11-25] MEDS: hydrALAZINE HCL 25 MG TABLET PO ×3 (09:12→17:46)
[2019-11-25] MEDS: ISOSORBIDE DINITRATE 20 MG TABLET 10 MG PO ×3 (09:12→17:46)
[2019-11-25] MEDS: carvediloL 6.25 MG TABLET PO ×2 (09:12→20:44)
[2019-11-25] MEDS: ASPIRIN 81 MG ENTERIC TABLET PO (09:12)
[2019-11-25 15:42] VITALS: BP 93/46; PULSE 87; RESP 18; TEMP 37.2; O2SAT 98
[2019-11-25] MEDS: SACCHAROMYCES BOULARDII 250 MG CAPSULE PO (17:47)
--- NOTE | 2019-11-25 19:05 | PM.EVENT ---
Event Note Event Note Event Note: For this patient encounter, I reviewed Phyllis Yates's CERTIFIED FAMILY MEDIATOR documentation, treatment plan, and medical decision making; and I had [id number] time with this patient,. The wound sight is non-tender without redness or swelling. Lung sounds are full and clear. Cor: RR and R, 2/6 systolic murmur at apex. Scant, very dark red drainage in wound vac.
[2019-11-25 20:44] VITALS: PULSE 80
[2019-11-25] MEDS: PRAVASTATIN SODIUM 20 MG TABLET PO (20:44)
[2019-11-25 23:42] VITALS: BP 105/53; PULSE 81; RESP 12; TEMP 37.4; O2SAT 98
[2019-11-26 07:25] VITALS: BP 114/56; PULSE 85; RESP 18; TEMP 37.4; O2SAT 98
[2019-11-26 09:01] VITALS: PULSE 85
[2019-11-26] MEDS: ASPIRIN 81 MG ENTERIC TABLET PO (09:01)
[2019-11-26] MEDS: ISOSORBIDE DINITRATE 20 MG TABLET 10 MG PO ×3 (09:01→16:53)
[2019-11-26] MEDS: carvediloL 6.25 MG TABLET PO ×2 (09:01→20:03)
[2019-11-26] MEDS: hydrALAZINE HCL 25 MG TABLET PO ×3 (09:01→16:53)
[2019-11-26] MEDS: SACCHAROMYCES BOULARDII 250 MG CAPSULE PO ×2 (09:02→16:53)
[2019-11-26] MEDS: MEROPENEM 2 GM in SODIUM CHLORIDE 0.9% IV 100 ML IVPB ×2 (12:43→23:17)
[2019-11-26 16:00] VITALS: BP 119/60; PULSE 89; RESP 18; TEMP 36.8; O2SAT 99
[2019-11-26 20:03] VITALS: PULSE 92
[2019-11-26] MEDS: PRAVASTATIN SODIUM 20 MG TABLET PO (20:03)
[2019-11-26 23:41] VITALS: BP 106/55; PULSE 82; RESP 12; TEMP 36.9; O2SAT 99
[2019-11-27 07:33] VITALS: BP 106/59; PULSE 92; RESP 18; TEMP 37.1; O2SAT 99
[2019-11-27 08:39] VITALS: PULSE 92
[2019-11-27] MEDS: carvediloL 6.25 MG TABLET PO ×2 (08:39→20:18)
[2019-11-27] MEDS: SACCHAROMYCES BOULARDII 250 MG CAPSULE PO ×2 (08:39→16:55)
[2019-11-27] MEDS: ASPIRIN 81 MG ENTERIC TABLET PO (08:39)
[2019-11-27] MEDS: hydrALAZINE HCL 25 MG TABLET PO ×3 (08:39→16:55)
[2019-11-27] MEDS: ISOSORBIDE DINITRATE 20 MG TABLET 10 MG PO ×3 (08:39→16:55)
[2019-11-27] MEDS: MEROPENEM 2 GM in SODIUM CHLORIDE 0.9% IV 100 ML IVPB ×2 (11:16→23:49)
[2019-11-27 16:00] VITALS: BP 100/53; PULSE 88; RESP 18; TEMP 37.3; O2SAT 99
[2019-11-27 20:18] VITALS: PULSE 85
[2019-11-27] MEDS: PRAVASTATIN SODIUM 20 MG TABLET PO (20:18)
[2019-11-27 23:42] VITALS: BP 114/54; PULSE 81; RESP 20; TEMP 36.5; O2SAT 100
[2019-11-28] VITALS (12 sets, daily range): BP systolic 85–128; BP diastolic 41–61; PULSE 84–95; RESP 16–18; TEMP 36.6–37.2; O2SAT 91–99
--- NOTE | 2019-11-28 00:32 | PC.NURSE ---
Pt refused SCD..
[2019-11-28] MEDS: MEROPENEM 2 GM in SODIUM CHLORIDE 0.9% IV 100 ML IVPB ×2 (09:05→21:23)
[2019-11-28] MEDS: hydrALAZINE HCL 25 MG TABLET PO ×2 (09:06→13:00)
[2019-11-28] MEDS: SACCHAROMYCES BOULARDII 250 MG CAPSULE PO ×2 (09:06→16:49)
[2019-11-28] MEDS: ASPIRIN 81 MG ENTERIC TABLET PO (09:06)
[2019-11-28] MEDS: ISOSORBIDE DINITRATE 20 MG TABLET 10 MG PO ×3 (09:06→16:49)
[2019-11-28] MEDS: carvediloL 6.25 MG TABLET PO ×2 (09:06→21:23)
--- NOTE | 2019-11-28 09:51 | P.PNIM_ITS ---
Progress Note: A&P Assessment and Plan (1) Infection of biventricular implantable cardioverter-defibrillator (ICD): Code(s): T82.7XXA - Infection and inflammatory reaction due to other cardiac and vascular devices, implants and grafts, initial encounter <Majo De León NP - Last Filed: 11/28/19 15:22> Status: Acute <Majo De León NP - Last Filed: 11/28/19 15:22> Assessment and Plan: * wound to the right upper chest 2.2x4.8x0.9 wound vac in [place] drsg change 3x per weekF/u with [facility] 11/24/19 at 9:[address] Lucia * continue meropenem 2 g iv q12hr ( delvis dose) for pseudomonas and enterobacter cloacae complex for six week from debridement approximately December 18, 2019 * will wait a full 6 week before inserting a new device. Per notes placement of device is urgent and it will be reasonable to insert a new device prior to completion antibiotic treatment. * ID and picker packer agrees to wait to completion of antibiotic treatment to plan implant ICD * collect weekly CBCs and CMPs if fax results [phone] * follow-up with [facility] clinic in 5-6 weeks via web mail. call [phone] to make appointment * October 2018 dx with LVEF 35% ; then the May 2019 Echo showed EF improved to 50% with no vegetation seen * f/u woth cardiology in 1-2 months * wound VAC setting to continuous pump settings 75 mm hg, dressing change on Wednesdays and Fridays * removed PICC line after last antibiotic treatment * wound to the right upper chest 2.2x4.8x0.9 wound vac in [place] drsg change 3x per weekF/u with [facility] 11/24/19 at 9:[address] Lucia * continue meropenem 2 g iv q12hr ( delvis dose) for pseudomonas and enterobacter cloacae complex for six week from debridement approximately December 18, 2019 * will wait a full 6 week before inserting a new device. Per notes placement of device is urgent and it will be reasonable to insert a new device prior to completion antibiotic treatment. * ID and picker packer agrees to wait to completion of antibiotic treatment to Prieb implant ICD * collect weekly CBCs and CMPs if fax results [phone] * follow-up with [facility] clinic in 5-6 weeks via web mail. call [phone] to make appointment * October 2018 dx with LVEF 35% recent echo inproved ef of 55-50% no vegetation seen * Cardiology F/U appts. noted above. * wound VAC setting to continuous pump settings 125 mm hg, dressing change on Wednesdays and Fridays * remove PICC line after last antibiotic treatment <Majo De León NP - Last Filed: 11/28/19 15:22> (2) Glaucoma: Code(s): H40.9 - Unspecified glaucoma <Majo De León NP - Last Filed: 11/28/19 15:22> Status: Acute <Majo De León NP - Last Filed: 11/28/19 15:22> Assessment and Plan: * continue eyedrops travoprost * continue eyedrops travoprost * no complaints at this time, ambulating and eating well with no noted visual concerns or impairments. <Majo De León NP - Last Filed: 11/28/19 15:22> (3) Hypertension: Code(s): I10 - Essential (primary) hypertension <Majo De León NP - Last Filed: 11/28/19 15:22> Status: Acute <Majo De León NP - Last Filed: 11/28/19 15:22> Assessment and Plan: * blood pressure stable * continue Coreg 6.25 mg Q 12 hours, hydralazine 25 mg p.o. t.i.d., isosorbide 10 mg p.o. t.i.d. * vital signs as ordered * will adjust medication as needed <Majo De León NP - Last Filed: 11/28/19 15:22> (4) Myelodysplastic syndrome: Code(s): D46.9 - Myelodysplastic syndrome, unspecified <Majo De León NP
--- NOTE | 2019-11-28 09:51 | PM.IMPN ---
Progress Note: A&P Assessment and Plan (1) Infection of biventricular implantable cardioverter-defibrillator (ICD): Code(s): T82.7XXA - Infection and inflammatory reaction due to other cardiac and vascular devices, implants and grafts, initial encounter <Majo De León NP - Last Filed: 11/28/19 15:22> Status: Acute <Majo De León NP - Last Filed: 11/28/19 15:22> Assessment and Plan: wound to the right upper chest 2.2x4.8x0.9 wound vac in [place] drsg [place] [facility]x [place] [facility] [place] [facility] Lucia continue meropenem 2 g iv q12hr ( delvis dose) for pseudomonas and enterobacter cloacae complex for six week from debridement approximately December 18, 2019 will wait a full 6 week before inserting a new device. Per notes placement of device is urgent and it will be reasonable to insert a new device prior to completion antibiotic treatment. ID and clerk operator agrees to wait to completion of antibiotic treatment to plan implant ICD collect weekly CBCs and CMPs if fax results [phone] follow-up with [facility] ID clinic in 5-6 weeks via web mail. call [phone] to make appointment October 2018 dx with LVEF 35% ; then the May 2019 Echo showed EF improved to 50% with no vegetation seen f/u woth cardiology in 1-2 months wound VAC setting to continuous pump settings 75 mm hg, dressing change on Wednesdays and Fridays removed PICC line after last antibiotic treatment wound to the right upper chest 2.2x4.8x0.9 wound vac in plave drsg change 3x per weekF/[place] [facility] [place] 9:[address] Lucia continue meropenem 2 g iv q12hr ( delvis dose) for pseudomonas and enterobacter cloacae complex for six week from debridement approximately December 18, 2019 will wait a full 6 week before inserting a new device. Per notes placement of device is urgent and it will be reasonable to insert a new device prior to completion antibiotic treatment. ID and clerk operator agrees to wait to completion of antibiotic treatment to Prieb implant ICD collect weekly CBCs and CMPs if fax results [phone] follow-up with [facility] ID clinic in 5-6 weeks via web mail. call [phone] to make appointment October 2018 dx with LVEF 35% recent echo inproved ef of 55-50% no vegetation seen Cardiology F/U appts. noted above. wound VAC setting to continuous pump settings 125 mm hg, dressing change on Wednesdays and Fridays remove PICC line after last antibiotic treatment <Majo De León NP - Last Filed: 11/28/19 15:22> (2) Glaucoma: Code(s): H40.9 - Unspecified glaucoma <Majo De León NP - Last Filed: 11/28/19 15:22> Status: Acute <Majo De León NP - Last Filed: 11/28/19 15:22> Assessment and Plan: continue eyedrops travoprost continue eyedrops travoprost no complaints at this time, ambulating and eating well with no noted visual concerns or impairments. <Majo De León NP - Last Filed: 11/28/19 15:22> (3) Hypertension: Code(s): I10 - Essential (primary) hypertension <Majo De León NP - Last Filed: 11/28/19 15:22> Status: Acute <Majo De León NP - Last Filed: 11/28/19 15:22> Assessment and Plan: blood pressure stable continue Coreg 6.25 mg Q 12 hours, hydralazine 25 mg p.o. t.i.d., isosorbide 10 mg p.o. t.i.d. vital signs as ordered will adjust medication as needed <Majo De León NP - Last Filed: 11/28/19 15:22> (4) Myelodysplastic syndrome: Code(s): D46.9 - Myelodysplastic syndrome, unspecified <Majo De León NP - Last Filed: 11/28/19 15:22> Status: Acute <Majo De León NP - Last Filed: 11/28/19 15:22> Assessment and Plan: Buddy has advancing MDS (myodysplastic syndrome) and pancytopenia. Garden Tractor Mechanic/Oncologist Dr. Betsy Barrientos (his cell [phone]) baseline platelet level is 30-50. typically his Garden Tractor Mechanic office vis
[2019-11-28 12:26] LABS: Hematocrit 20.4 % (37.0-46.0); Immature Platelet Fraction Pct 11.2 % (1.0-7.0); Mean Corpuscular HGB Conc 31.9 g/dL (32.0-36.0); Mean Corpuscular Volume 97.1 fL (78.0-102.0); Mean Platelet Volume 13.5 fl (8.7-11.0); Platelet Count Result 113 K/mm3 (150-420); Red Cell Distribution Width 17.9 % (11.6-14.4); White Blood Count 10.4 K/mm3 (4.8-10.8)
[2019-11-28 12:30] LABS: Hemoglobin 6.5 g/dL (12.4-15.3)
[2019-11-28 12:42] LABS: Alanine Aminotransferase 26 U/L (16-63); Albumin Level 2.9 g/dL (3.4-5.0); Alkaline Phosphatase 99 U/L (46-116); Anion Gap 6 mmol/L (8-16); Aspartate Amino Transferase 14 U/L (15-37); Bilirubin,Total 2.1 mg/dL (0.00-1.00); Blood Urea Nitrogen 30 mg/dL (7-18); CRP 1.9 mg/dL (0.0-0.9); Calcium 8.5 mg/dL (8.5-10.1); Carbon Dioxide 27 mmol/L (21-32); Chloride 102 mmol/L (98-108); Estimated CRCL calculation 48 ml/min; Estimated Glomerular Filt Rate > 60; Glucose 99 mg/dL (70-99); Magnesium 1.8 mg/dL (1.8-2.4); Osmolality Calculated 286 mOsm/kg (285-295); Phosphorus 2.8 mg/dL (2.6-4.7); Potassium 4.3 mmol/L (3.5-5.1); Sodium 135 mmol/L (136-145); Total Protein 6.1 g/dL (6.4-8.2)
[2019-11-28 12:55] LABS: Band Neutrophils Percent 2 % (0-6); Eosinophils Percent Manual 2 % (1-6); Lymphocytes Absolute Manual 2.18 K/mm3 (1.1-4.5); Lymphocytes Percent Manual 21 % (18-44); Monocytes Absolute Manual 2.91 K/mm3 (0.1-0.90); Monocytes Percent Manual 28 % (3-9); Neutrophils Absolute Manual 4.16 K/mm3 (1.3-6.7); Neutrophils Percent Manual 38 % (46-73); Nucleated Red Blood Cells 2 %; Platelet Estimate Decreased (Adequate); Total Cells Counted 100
[2019-11-28 12:56] LABS: Basophils Percent Manual 1 % (0-1); Metamyelocytes Percent 1 %; Myelocytes Percent 6 %; Promyelocytes Percent 1 %
[2019-11-28 13:29] LABS: Erythrocyte Sedimentation Rate 8 mm/hr (0-20)
--- NOTE | 2019-11-28 13:46 | PM.EVENT ---
Event Note Event Note Event Note: CBC results showed improved platelet count from the 20s up to 113 today. There is no need for SC Nplate supplementation. His absolute neutrophils were at 4.16, so no need for SQ Granix. No fevers noted, HRs 80-90, SBPs >100, able to ambulate around his room and to/from bathroom with no difficulty. However his hemoglobin dropped to 6.5 from 7.3 at the last check. I have ordered a type and screen as well as an order for transfusing 2 units of RBCs. He will get a repeat CBC drawn tomorrow when he sees his brim pouncer machine operator in the morning. Patient has been informed. Labs and specialists including Dr. Betsy Barrientos, Heme/Onc and DR. Samantha Rivera, ID, have been informed and I have faxed them today's lab results. Dr. Betsy Barrientos, Heme/Onc Dr. Samantha Rivera, ID <Majo De León, LAST MODEL DEPARTMENT SUPERVISOR - Last Filed: 11/28/19 14:21>
[2019-11-28] MEDS: SODIUM CHLORIDE 0.9% IV 250 ML 30 ML IV CONT (13:55)
--- NOTE | 2019-11-28 15:30 | PCOTNOTE ---
OT attempted to see patient this pm however patient on hold per nursing as he is receiving blood. MS
--- NOTE | 2019-11-28 17:12 | PC.NURSE ---
second unit of blood started/infusing and in chair eating dinner, denies needs
--- NOTE | 2019-11-28 18:03 | PC.NURSE ---
blood infusing per picc line, tolerating well, denies needs
[2019-11-28] MEDS: PRAVASTATIN SODIUM 20 MG TABLET PO (21:23)
[2019-11-29] VITALS: BP 107/48; PULSE 80; RESP 20; TEMP 37.1; O2SAT 96
[2019-11-29 06:06] LABS: Hematocrit 25.3 % (37.0-46.0); Hemoglobin 8.2 g/dL (12.4-15.3); Mean Corpuscular HGB Conc 32.4 g/dL (32.0-36.0); Mean Corpuscular Hemoglobin 30.9 pg (27.0-31.0); Mean Corpuscular Volume 95.5 fL (78.0-102.0); Platelet Count Result 97 K/mm3 (150-420); Red Blood Count 2.65 M/mm3 (4.70-6.10); Red Cell Distribution Width 17.2 % (11.6-14.4); White Blood Count 8.2 K/mm3 (4.8-10.8)
[2019-11-29 07:29] VITALS: BP 133/61; PULSE 80; RESP 16; TEMP 36.8; O2SAT 99
[2019-11-29] MEDS: ASPIRIN 81 MG ENTERIC TABLET PO (07:51)
[2019-11-29] MEDS: MEROPENEM 2 GM in SODIUM CHLORIDE 0.9% IV 100 ML IVPB (07:51)
[2019-11-29] MEDS: carvediloL 6.25 MG TABLET PO (07:52)
[2019-11-29] MEDS: hydrALAZINE HCL 25 MG TABLET PO (07:53)
[2019-11-29] MEDS: ISOSORBIDE DINITRATE 20 MG TABLET 10 MG PO (07:53)
[2019-11-29] MEDS: SACCHAROMYCES BOULARDII 250 MG CAPSULE PO (07:54)
--- NOTE | 2019-11-29 08:29 | P.DS_ITS ---
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 Per notes placement of device is urgent and it will be reasonable to insert a new device prior to completion antibiotic treatment. * ID and predatory animal hunter agrees to wait to completion of antibiotic treatment to plan implant ICD * collect weekly CBCs and CMPs if fax results [phone] * follow-up with [facility] ID clinic in 5-6 weeks via web mail. call [phone] to make appointment * October 2018 dx with LVEF 35% ; then the May 2019 Echo showed EF improved to 50% with no vegetation seen * f/u woth cardiology in 1-2 months * removed PICC line after last antibiotic treatment * wound VAC setting to continuous pump settings 125 mm hg, dressing change on Wednesdays and Fridays (2) Glaucoma: Code(s): H40.9 - Unspecified glaucoma Status: Acute Assessment and Plan: * continue eyedrops travoprost * continue eyedrops travoprost * no complaints at this time, ambulating and eating well with no noted visual concerns or impairments. (3) Hypertension: Code(s): I10 - Essential (primary) hypertension Status: Acute Assessment and Plan: * blood pressure stable * continue Coreg 6.25 mg Q 12 hours, hydralazine 25 mg p.o. t.i.d., isosorbide 10 mg p.o. t.i.d. 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 * Acid Pumper/Oncologist Dr. Betsy Barrientos (his cell [phone]) * baseline platelet level is 30-50. * typically his Acid Pumper office visit was with them every 4 weeks, but in recent weeks his counts have been so poor that he is having weekly F/U visits with long wall shear operator. * Stool occult negative. * on November 26, spoke with Acid Pumper/Oncologist Dr. Betsy Barrientos (his cell [phone]) over the phone. He treats Buddy for his advancing MDS and pancytopenia. * These are his updated instructions for labs, medication administration, and follow up visits: 1.) Weekly CBCs will be done EVERY WEDNESDAY. Labs done ANY other day of the week, is NOT acceptable to base the following dosing instructions on. No repeat or other labwork needs to be done for Acid Pumper/Oncologist unless patient starts bleeding or becomes symptomatic such as low BP, tachycardic, lethargic, altered mental status, or fever. This Wednesday CBC will be done Either at Dr. Betsy Barrientos's office (if the patient is seeing him that day) OR at home by Home Health cytogenetics laboratory manager draw OR by [facility] RN if patient still in Swing Rehab. 2.) If Platelets <50 on that Wednesday CBC, then Buddy needs to get N plate (romiplostim) 2 mcg/kg SC administered that same day, Wednesday. He gets the N plate (romiplosti
--- NOTE | 2019-11-29 08:29 | PM.DS ---
DS: Admitting Diagnosis Admitting Diagnosis Admitting Diagnosis: Infection and inflammatory reaction due to other cardiac and vascular devices, implants and grafts, initial encounter DS: Discharge Diagnosis Discharge Diagnosis (1) Infection of biventricular implantable cardioverter-defibrillator (ICD): Code(s): T82.7XXA - Infection and inflammatory reaction due to other cardiac and vascular devices, implants and grafts, initial encounter Status: Acute Assessment and Plan: his pacemaker pocket wound proved to improve while he was here with the negative pressure wound VAC therapy continue meropenem 2 g iv q12hr ( delvis dose) for pseudomonas and enterobacter cloacae complex for six week from debridement approximately December 18, 2019 will wait a full 6 week before inserting a new device. Per notes placement of device is urgent and it will be reasonable to insert a new device prior to completion antibiotic treatment. ID and decator operator agrees to wait to completion of antibiotic treatment to plan implant ICD collect weekly CBCs and CMPs if fax results [phone] follow-up with [facility] ID clinic in 5-6 weeks via web mail. call [phone] to make appointment October 2018 dx with LVEF 35% ; then the May 2019 Echo showed EF improved to 50% with no vegetation seen f/u woth cardiology in 1-2 months removed PICC line after last antibiotic treatment wound VAC setting to continuous pump settings 125 mm hg, dressing change on Wednesdays and Fridays (2) Glaucoma: Code(s): H40.9 - Unspecified glaucoma Status: Acute Assessment and Plan: continue eyedrops travoprost continue eyedrops travoprost no complaints at this time, ambulating and eating well with no noted visual concerns or impairments. (3) Hypertension: Code(s): I10 - Essential (primary) hypertension Status: Acute Assessment and Plan: blood pressure stable continue Coreg 6.25 mg Q 12 hours, hydralazine 25 mg p.o. t.i.d., isosorbide 10 mg p.o. t.i.d. 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 Fish Hatchery Assistant/Oncologist Dr. Betsy Barrientos (his cell [phone]) baseline platelet level is 30-50. typically his Fish Hatchery Assistant office visit was with them every 4 weeks, but in recent weeks his counts have been so poor that he is having weekly F/U visits with setter off. Stool occult negative. on November 26, spoke with Fish Hatchery Assistant/Oncologist Dr. Betsy Barrientos (his cell [phone]) over the phone. He treats Buddy for his advancing MDS and pancytopenia. These are his updated instructions for labs, medication administration, and follow up visits: 1.) Weekly CBCs will be done EVERY WEDNESDAY. Labs done ANY other day of the week, is NOT acceptable to base the following dosing instructions on. No repeat or other labwork needs to be done for Fish Hatchery Assistant/Oncologist unless patient starts bleeding or becomes symptomatic such as low BP, tachycardic, lethargic, altered mental status, or fever. This Wednesday CBC will be done Either at Dr. Betsy Barrientos's office (if the patient is seeing him that day) OR at home by Home Health laborer tan house draw OR by [facility] RN if patient still in Swing Rehab. 2.) If Platelets <50 on that Wednesday CBC, then Buddy needs to get N plate (romiplostim) 2 mcg/kg SC administered that same day, Wednesday. He gets the N plate (romiplostim) Q week if the Plts<50. If the Plts are worsening despite previous weeks' dose, speak to DR. Barrientos, as he titrates the dose up then. 3.) If Hemoglobin <10 on that Wednesday CBC, then Buddy needs to gets Aranesp 400 mcg SC administered that same day, Wednesday. 4.) If Absolute Neutrophils <1.0 on that Wednesday CBC, then Buddy needs to gets Granix 480 mc
--- NOTE | 2019-11-29 10:50 | PC.NURSE ---
1046 FAXED [facility] BOTH DISCHARGE SUMMARY AND INSTRUCTIONS TO THEM WITH CONFIRMATION.
--- NOTE | 2019-11-29 23:27 | PM.EVENT ---
Event Note Event Note Event Note: I have examined the patient reviewed the chart. I discussed the patient's care with A Sarthak SANCHEZ and agree with her assessment and plan.
== END 2019-11-29 10:41 | disposition home health service (06) | DRG 949 ==
PROVIDERS: Nurse Practitioner; Admitting Provider Emergency Medicine; PCP Family Medicine; Visit Provider Emergency Medicine
DX: T82.7XXD Infection and inflammatory reaction due to other cardiac and vascular devices, implants and grafts, subsequent encounter (principal); I42.9 Cardiomyopathy, unspecified; D61.818 Other pancytopenia; I11.0 Hypertensive heart disease with heart failure; I50.9 Heart failure, unspecified; I25.10 Atherosclerotic heart disease of native coronary artery without angina pectoris; I44.7 Left bundle-branch block, unspecified; D46.9 Myelodysplastic syndrome, unspecified; E53.8 Deficiency of other specified B group vitamins; H40.9 Unspecified glaucoma; E80.6 Other disorders of bilirubin metabolism
CPT/HCPCS: 36415; 36430; 80053; 82272; 83735; 84100; 85014; 85018; 85025; 85027; 85055; 85652; 86140; 86850; 86900; 86901; 86920; 86923; 97110; 97161; 97165; 97530; 97535; A9270; J2185; J7050; L2112; P9016